=== PATIENT | female | born 1960 | race Caucasian/White ===

== ENCOUNTER 2017-09-21 11:13 | Day surgery (SDC) | payer OTHER ==
[~2017-09-21 11:13] MED LIST: ATROPINE 1 MG/10 ML SYRINGE IV; DIPHENHYDRAMINE 50 MG INJ IV; EPHEDrine SULFATE 50 MG/5 ML SYG IV; FENTAnyl 50 MCG/ML VIAL IV; HYDROmorphONE (0.2 MG/ML) 10ML SYG IV; LABETALOL HCL 20MG INJ IV; LACTATED RINGER'S 1,000 ML IV; MIDAZOLAM 1 MG/ML 2 ML INJ IV; OXYCODONE/ACETAMINOPHEN (5/325) TAB PO; hydrALAzine 20 MG INJ IV; morphine (1 MG/ML) 10ML SYRINGE IV
[2017-09-21] MEDS ORDERED: ONDANSETRON 4 MG INJ (13:42)
[2017-09-21] MEDS ORDERED: DEXAMETHASONE 4 MG/ML 1 ML INJ (13:42)
[2017-09-21] MEDS: HYDROmorphONE (0.2 MG/ML) 10ML SYG IV (15:05)
[2017-09-21] MEDS: ONDANSETRON 4 MG INJ IV (15:06)
[2017-09-21] MEDS: MEPERIDINE 25 MG INJ IV (15:11)
== END 2017-09-21 16:43 | disposition home or self-care (01) ==
LOC: SDS 11:13
DX: N92.0 Excessive and frequent menstruation with regular cycle (principal); I10 Essential (primary) hypertension; J45.909 Unspecified asthma, uncomplicated; E66.01 Morbid (severe) obesity due to excess calories; Z68.43 Body mass index [BMI] 50.0-59.9, adult
CPT/HCPCS: 58558; 88305